=== PATIENT | female | born 1950 | race Caucasian/White ===

== ENCOUNTER 2019-08-04 16:58 | Emergency (ER) | payer OTHER ==
[~2019-08-04] VITALS: Ht 157.5 cm; Wt 112.0 kg
[2019-08-04 17:07] VITALS: Ht 157.5 cm; Wt 112.0 kg
[2019-08-04 17:52] LABS: PLATELET COUNT 194 x10^3mcL (130-400)
[2019-08-04 17:53] LABS: RED CELL DISTRIBUTION WIDTH 14.9 % (11.5-14.5)
[2019-08-04 18:09] LABS: CALCIUM 8.7 mg/dL (8.5-10.1); CARBON DIOXIDE 27.1 mmol/L (21-32); CREATININE SERUM 1.7 mg/dL (0.6-1.0); POTASSIUM SERUM 3.9 mmol/L (3.5-5.1)
[2019-08-04 18:13] LABS: ALBUMIN 3.7 g/dL (3.4-5.0); BILIRUBIN TOTAL 0.4 mg/dL (0.20-1.00); TOTAL PROTEIN, SERUM 7.2 g/dL (6.4-8.2)
[2019-08-04 21:00] VITALS: BP 149/63
== END 2019-08-04 21:00 | disposition home or self-care (01) ==
LOC: ED 16:58
DX: R55 Syncope and collapse (principal); I10 Essential (primary) hypertension; R05 Cough; R42 Dizziness and giddiness; E11.40 Type 2 diabetes mellitus with diabetic neuropathy, unspecified; Z88.0 Allergy status to penicillin; Z88.2 Allergy status to sulfonamides; Z88.5 Allergy status to narcotic agent; Z88.1 Allergy status to other antibiotic agents; Z86.79 Personal history of other diseases of the circulatory system
CPT/HCPCS: 36415; 83880; J1885; Q0092